=== PATIENT | male | born 1975 | race Caucasian/White ===

== ENCOUNTER → 2017-04-07 07:10 | Outpatient (CLI) | payer OTHER ==
[~2017-04-07 07:10] MED LIST: HYDROCODON-ACE1 EAC7 PO; OMEPRAZOLE20 M1 PO; TUMS500 MG PO; ZOFRAN ODT4 MG/UDTAB PO
[2017-06-14 13:23] VITALS: BMI 37.0
== END | disposition home or self-care (01) ==
LOC: D.OPS 03-30 07:30 → D.RAD 03-30 07:30
DX: R13.10 Dysphagia, unspecified (principal)

== ENCOUNTER 2017-06-14 06:10 | Inpatient (IN) | payer MEDICAID ==
[~2017-06-14] VITALS: Ht 185.4 cm; Wt 127.3 kg
[2017-06-14] VITALS (12 sets, daily range): BP systolic 108–134; BP diastolic 59–90; Ht 185.4 cm; Wt 127.3 kg
--- NOTE | ~2017-06-14 | OP ---
PATIENT NAME: SHAHEEN EDWARDS MEDICAL RECORD: [id number] :79 LOCATION:[id number] ADMISSION DATE:06/14/17 SURGEON: TI RICO MD DATE OF OPERATION: 06/14/2017 SURGEON: Ti Rico MD MAINTENANCE APPRENTICE SURGEON: 1. Steven Rothman MD 2. Jade Robles APN. ANESTHESIA: General. PREOPERATIVE DIAGNOSIS: Achalasia. POSTOPERATIVE DIAGNOSIS: 1. Achalasia. 2. Hiatal hernia. PROCEDURE PERFORMED: 1. Laparoscopic hiatal hernia repair. 2. Laparoscopic pyloromyotomy. 3. Laparoscopic Taj fundoplication. COMPLICATIONS: None. SPECIMENS: None. Case was clean. ESTIMATED BLOOD LOSS: 70 mL. OPERATIVE COURSE: After consent was obtained, the patient was taken to the operating room and placed in the supine position on the operating table. Next, general anesthesia was given via endotracheal intubation after a timeout was performed to confirm the correct patient and procedure. The abdomen was then prepped and draped in typical sterile fashion. Local anesthetic was injected just above the umbilicus. A stab incision was made with 11-blade scalpel. Using an 11-mm bladeless optical trocar, the abdomen was entered under direct laparoscopic vision. Adequate pneumoperitoneum was achieved. The patient was then placed in the steep reverse Trendelenburg position. All remaining trocars were placed under direct laparoscopic vision at the administration of local anesthetic, 12-mm trocar and 5-mm trocar in the right lateral quadrants, two 5-mm trocars in the left lateral quadrant, Tana liver retractor in the subxiphoid position. The left lobe of liver was then retracted exposing the GE junction. The gastrohepatic ligament was opened with Harmonic scalpel dissection. The short gastrics were taken along the cardia to the level of the right crura using the Harmonic scalpel, circumferential dissection was performed. A lpql-ih-lzrkomup sized hiatal hernia was encountered. The dissection continued into the mediastinum until approximately 3 cm of intra-abdominal esophagus were obtained. The hiatal hernia repair was performed using 0 Stratafix polypropylene suture. The GE junction fat pad was meticulously dissected as well as the hernia sac off of the stomach. The GE junction was identified. A myotomy was performed using the hook dissector approximately 3 cm proximal and distal to the GE junction. The submucosa was OPERATIVE REPORT [id number] SHAHEEN EDWARDS readily identified. There were no mucosal injuries identified. A Taj fundoplication was then performed using 3-0 Stratafix suture. At this time, the abdominal cavity was copiously irrigated and suctioned. Careful attention was paid to hemostasis. The Tana liver retractor was removed. Again, the abdominal cavity was inspected. The 5-mm camera was placed. The 11-mm and 12-mm trocar site were closed with a Jordan-Chicho suture passer in direct laparoscopic vision. At this time, the abdomen was desufflated. Two Valsalvas were performed. All remaining trocars removed. The skin was closed with 4-0 Monocryl, Mastisol, and Steri-Strips. At the end of the case, all needle and instrument counts were correct. No complications occurred. The patient was extubated and transferred to PACU in stable condition. TRANSINT:[id number] Voice Confirmation ID: [id number] DOCUMENT ID: [id number] TI RICO MD at 1239 CC: [id number] DICTATION DATE: 06/14/17 1013 TREASURY ASSOCIATE: 06/14/17 1200 ADM IN [id number] [place] [address]
--- NOTE | ~2017-06-14 | OP ---
PATIENT NAME: SHAHEEN EDWARDS MEDICAL RECORD: [id number] :77 LOCATION:[facility] ADMISSION DATE:06/14/17 SURGEON: JUANY SHEPPARD MD DATE OF OPERATION: 06/14/2017 ASSISTANCE NOTE I assisted Dr. QUINCY Ramírez with the laparoscopic hiatal hernia repair as well as a Heller myotomy and a Taj fundoplication. My involvement in the operation included placing 2 of the 5-mm trocars. Retraction of tissue. Dissection on the left side of the breanne. Taking down a few of the short gastric vessels with the Harmonic scalpel. Dissection up into the mediastinum bluntly as well as with the Harmonic scalpel. Retraction of the esophagus to provide exposure for Dr. Ramírez to perform the hiatal hernia repair. Retraction of tissues during the Heller myotomy, and also retraction and manipulation of tissues during the Taj fundoplication. Due to the complexity of the procedure, it was necessary for 2 attending surgeons to be present during the procedure. I ran the camera for a short period of time. I irrigated and aspirated. I assisted with removal of the gastroesophageal fat pad as well as the hiatal hernia sac. I then scrubbed out as the skin incisions were being closed. TRANSINT:[id number] Voice Confirmation ID: [id number] DOCUMENT ID: [id number] JUANY SHEPPARD MD at 1157 CC: [id number] DICTATION DATE: 06/14/17 0950 GAS APPLIANCE INSTALLER: 06/14/17 1145 DIS IN 06/15/17 [facility] [address] [place] [address]
[2017-06-14] MEDS ORDERED: OMEPRAZOLE20 M1 PO (06:50)
[2017-06-14] MEDS ORDERED: TUMS500 MG PO (06:52)
[2017-06-15 04:54] VITALS: BP 119/55
[2017-06-15 06:09] LABS: BASOPHILS 0.3 % (0-2); EOSINOPHILS 0.2 % (0-7); HEMATOCRIT 40.7 % (42.0-54.0); HEMOGLOBIN 13.5 g/dL (13.5-17.5); IMMATURE GRANULOCYTES 0.2 % (0-5); LYMPHOCYTES 22.4 % (15-50); MCH 30.1 pg (26.0-34.0); MCHC 33.2 g/dL (31.0-37.0); MCV 90.8 fL (80.0-100.0); MEAN PLATELET VOLUME 10.6 fL (7.4-10.4); MONOCYTES 8.3 % (2-11); NEUTROPHILS 68.6 % (40-80); PLATELET COUNT 198 10x3/uL (130-400); RBC 4.48 10x6/uL (4.20-6.10); RDW 13.3 % (11.5-14.5); WBC 9.9 10x3/uL (4.8-10.8)
[2017-06-15 06:50] LABS: ALBUMIN 3.1 g/dL (3.4-5.0); ALKALINE PHOSPHATASE 38 U/L (46-116); ALT (SGPT) 27 U/L (10-68); BILIRUBIN - TOTAL 0.82 mg/dL (0.2-1.3); CALC OSMOLALITY 275 mosm/kg (275-300); CALCIUM 8.5 mg/dL (8.5-10.1); CARBON DIOXIDE 28.1 mmol/L (21.0-32.0); CHLORIDE - SERUM 102 mmol/L (98-107); CREATININE - SERUM 0.9 mg/dL (0.6-1.3); GLUCOSE 106 mg/dL (74-106); POTASSIUM - SERUM 3.7 mmol/L (3.5-5.1); PROTEIN - SERUM 6.6 g/dL (6.4-8.2); SODIUM 138 mmol/L (136-145); UREA NITROGEN 12 mg/dL (7-18); eGFR NON AFRICAN AMERICAN > 90 mL/min (90-120)
[2017-06-15 08:14] VITALS: BP 122/62
[2017-06-15] MEDS ORDERED: HYDROCODON-ACE1 EAC7 PO (12:16)
[2017-06-15] MEDS ORDERED: ZOFRAN ODT4 MG/UDTAB PO (12:16)
[2017-06-15 12:39] VITALS: BP 127/64
== END 2017-06-15 16:42 | DRG 328 ==
LOC: D.MS 06:10 → D.SDCHOLD 06:10 → D.MS 10:49
PROVIDERS: Surgery
PROC: 0DV44ZZ Restriction of Esophagogastric Junction, Percutaneous Endoscopic Approach (ICD-10-PCS; 2017-06-14)
PROC: 0D844ZZ Division of Esophagogastric Junction, Percutaneous Endoscopic Approach (ICD-10-PCS; principal; 2017-06-14 08:00)
DX: K22.0 Achalasia of cardia (principal); K44.9 Diaphragmatic hernia without obstruction or gangrene; R13.10 Dysphagia, unspecified